=== PATIENT | male | born 1980 | race Caucasian/White ===

== ENCOUNTER 2018-09-01 17:47 | Emergency (ER) | payer SELFPAY ==
[~2018-09-01] VITALS: Ht 154.9 cm; Wt 64.8 kg
[2018-09-01 17:57] VITALS: BP 140/98; PULSE 92; RESP 18; Ht 154.9 cm; Wt 64.8 kg
== END 2018-09-01 19:07 | disposition left against medical advice (07) ==
LOC: FTE 17:47
DX: Z53.21 Procedure and treatment not carried out due to patient leaving prior to being seen by health care provider (principal)

== ENCOUNTER 2018-09-03 03:06 | Emergency (ER) | payer SELFPAY ==
[~2018-09-03] VITALS: Ht 154.9 cm; Wt 65.3 kg
[2018-09-03 03:10] VITALS: BP 150/98; PULSE 93; RESP 18; Ht 154.9 cm; Wt 65.3 kg
[2018-09-03] MEDS ORDERED: KETOROLAC 30 MG INJ IM STA (03:24)
[2018-09-03] MEDS ORDERED: DIAZEPAM 5 MG TAB PO ONE (03:30)
--- NOTE | 2018-09-03 03:36 | ERD ---
ER Documentation Chief Complaint Chief Complaint upper-mid back&L middle finger pains x 10 days;hx arthritis&hip replacement HPI 38-year-old male with no significant past medical history presents to the emergency department complaining of right mid back pain with radiation down his right leg for the past 10 days. He reports muscle spasms. Pain is constant, 8/10 in severity, alleviated with ibuprofen at home. He denies any loss of bowel or bladder function, trauma, urinary symptoms, or other symptoms at this time. ROS All systems reviewed and are negative except as per history of present illness. Allergies Allergies: Coded Allergies: No Known Allergy (Unverified , 09/03/18) PMhx/Soc Hx Cardiac Disorders: Yes (high cholesterol) Hx Miscellaneous Medical Probl: Yes (Arthritis) Hx Alcohol Use: Yes (occasional) Hx Substance Use: No Hx Tobacco Use: No FmHx Family History: No diabetes Physical Exam Vitals Vital Signs Date Temp Pulse Resp B/P (MAP) Pulse Ox O2 O2 Flow FiO2 Time Delivery Rate 09/03/18 98.0 93 18 150/98 98 03:10 (115) Physical Exam Const: No acute distress Head: Atraumatic Eyes: Normal Conjunctiva ENT: Normal External Ears, Nose and Mouth. Neck: Full range of motion. No meningismus. Resp: Clear to auscultation bilaterally Cardio: Regular rate and rhythm, no murmurs Abd: Soft, non tender, non distended. Normal bowel sounds Skin: No petechiae or rashes Back: No midline or flank tenderness. Tenderness palpation of the paraspinal muscles of the thoracic spine on the right. Muscle spasm noted. Positive straight leg raise on the right. Ext: No cyanosis, or edema Neur: Awake and alert Psych: Normal Mood and Affect Results 24 hrs Current Medications Medications Dose Sig/Lokesh Start Time Status Last (Trade) Ordered Route PRN Stop Time Admin Dose Reason Admin Diazepam 5 mg ONCE ONCE 09/03/18 DC (Valium) PO 03:30 09/03/18 03:31 Ketorolac 30 mg ONCE STAT 09/03/18 DC Tromethamine IM 03:24 (Toradol) 09/03/18 03:26 Procedures/MDM 38-year-old male presents to the emergency department with signs and symptoms most consistent with right-sided back pain with sciatica. Patient is administered Valium and Toradol in the department with good response. He was improved prior to discharge. Patient's musculoskeletal symptoms have stabilized while they have been evaluated in the department and are appropriate for outpatient work up. No evidence of cauda equina, cord compression, infiltrative, or infectious etiology. No evidence of life-threatening pathology at time of discharge. Pt/family in agreement with discharge plan/diagnosis. Pt/family advised to return immediately with any new or worsening symptoms. Follow-up with primary care physician within the next 1-2 days. Patient's blood pressure was elevated (>120/80) but appears stable without evidence of hypertension emergency or urgency. The patient is to follow-up and pursue outpatient monitoring and therapy with their primary care physician within 1 week and return immediately i f they have any new, worsening, or concerning symptoms. Disclaimer: Inadvertent spelling and grammatical errors are likely due to EHR/dictation software use and do not reflect on the overall quality of patient care. Also, please note that the electronic time recorded on this note does not necessarily reflect the actual time of the patient encounter. Departure Diagnosis: Primary Impression: Back pain Back pain location: thoracic back pain Chronicity: acute Back pain laterality: right Qualified Codes: M54.6 - Pain in thoracic spine Condition: Fair Patient Instructions: Back Pain (Acute Or Chronic) Additional Instructions: Follow up with your PCP within the next 1-3 days for a repeat evaluation. If you require a referral to a specialist, your Primary Care Provider may be able to provide this for you. In most patient cases, a referral is not required. If you have further questions regarding this matter, please ask your Primary Care Provider. Return the the emergency department immediately if symptoms worsen or change. If you have any questions regarding medications, ask your pharmacist or us before you leave. If any adverse reactions, occur while taking your medications, discontinue the treatment and return to the emergency department immediately. If any new or worsening symptoms, uncontrolled fevers, or other unexplained symptoms occur, return to the emergency department immediately. Take your medications as directed, and complete the entire course of treatment. PA BROWN PA-C Sep 03, 2018 03:36
[2018-09-03] MEDS ORDERED: NAPR-985 PO (03:41)
[2018-09-03] MEDS ORDERED: CYCL10TA7 PO (03:41)
== END 2018-09-03 04:14 | disposition home or self-care (01) ==
LOC: FTE 03:06
DX: M54.6 Pain in thoracic spine (principal)
CPT/HCPCS: 96372; 99284; J1885